=== PATIENT | male | born 1990 | race Caucasian/White ===

== ENCOUNTER 2018-11-30 19:46 | Emergency (ER) | payer BC, OTHER ==
--- NOTE | 2018-11-30 23:02 | EDM.PDOCBH ---
ED HPI GENERAL MEDICAL PROBLEM - General Chief Complaint: Behavioral/Psych Stated Complaint: PANIC ATTACKS [facility] PATIENT Time Seen by Provider: 11/30/18 22:12 Source of Information: Reports: Patient, Family (Parents) History Limitations: Reports: Physical Impairment (flat affect, unable to concentrate) - History of Present Illness INITIAL COMMENTS - FREE TEXT/NARRATIVE: Mr. Reynolds is a pleasant 28-year-old man who states that he is here for a panic attack that began around 16:00 this afternoon, and has persisted. When asked what he means by a panic attack, he states that he is thinking of killing himself or others, using a knife, or running out in traffic. When prompted, he states that he feels anxious, but he does not describe symptoms such as dyspnea , tingling, numbness, chest pain, palpitations, abdominal pain, nausea, or weakness in the legs, or other symptoms typical of a panic attack. He denies recent illness, such as fever, chills, cough, vomiting, constipation, diarrhea, urinary symptoms, recent weight gain or weight loss, recent bloody bowel movements or black bowel movements, joint aches, headaches, or rashes. The patient states that he has never previously attempted to harm himself, or others. The patient's parents tell me that the patient was psychiatrically admitted to the [facility] in [place], [place], followed by BERNARDO Olvera, followed by 4 or 5 admissions to the [facility] [place], near [place], [place], and, most recently, the [facility] [place], [place], being discharged this past 11/26/2018. [facility] [place] [facility]. The patient has been diagnosed with bipolar affective disorder, PTSD , and schizoaffective disorder. He is currently prescribed haloperidol, fluoxetine, diphenhydramine, trazodone, and risperidone. The patient's parents tell me that this is his first "panic attack" since being discharged from the [facility]. The patient's parents state that the [facility] the [facility] [place], [place], however, if that is not possible, then they would like him to go back to [place]. The patient's parents are willing to drive him. The patient's P[facility] is at the [facility]. - Related Data Allergies Allergy/AdvReac Type Severity Reaction Status Date / Time morphine Allergy Rash Verified 11/30/18 20:20 Past Medical History Psychiatric History: Reports: Bipolar, PTSD, Other (See Below) (Schizoaffective disorder) - Past Surgical History HEENT Surgical History: Reports: Oral Surgery (wisdom teeth extraction) GI Surgical History: Reports: Appendectomy, Lysis of Adhesions (open) Musculoskeletal Surgical History: Reports: Arthroscopic Knee (right), Other ( See Below) (Left knee, open, x 2) Social & Family History - Tobacco Use Smoking Status *Q: Never Smoker - Alcohol Use Alcohol Use History: Yes Alcohol Use Frequency: Socially - Recreational Drug Use Recreational Drug Use: No - Living Situation & Occupation Living situation: Reports: Single, with Family (Parents) Occupation: Employed ([employer]) ED ROS GENERAL - Review of Systems Review Of Systems: ROS reveals no pertinent complaints other than HPI. ED EXAM, BEHAVIORAL HEALTH - Physical Exam Exam: See Below Exam Limited By: No Limitations General Appearance: Alert, WD/WN, No Apparent Distress Eye Exam: Bilateral Eye: EOMI, Normal Inspection Ears: Normal External Exam, Hearing Grossly Normal Nose: Normal Inspection Throat/Mouth: Normal Inspection, Normal Lips, Normal Voice, No Airway Compromise Head: Atraumatic, Normocephalic Neck: Normal Inspection, Full Range of Motion Respiratory/Chest: No Respiratory Distress, Lungs Clear, Normal Breath Sounds, No Accessory Muscle Use Cardiovascular: Normal Peripheral Pulses, Regular Rate, Rhythm, No Edema, No Gallop, No JVD, No Murmur, No Rub GI/Abdominal: Normal Bowel Sounds, Soft, Non-Tender, No Organomegaly, No Distention, No Abnormal Bruit, No Mass (Male) Exam: Deferred Rectal (Males) Exam: Deferred Back Exam: Normal Inspection, Full Range of Motion, NT Extremities: Normal Inspection, Normal Range of Motion, No Pedal Edema, Normal Capillary Refill Neurological: Alert, No Motor/Sensory Deficits, Other (Slow, sometimes unable to answer questions) Psychiatric: Flat Affect Skin Exam: Warm, Dry, Intact, Normal color, No rash EKG INTERPRETATION EKG Date: 11/30/18 Time: 22:51 Rhythm: NSR Rate (Beats/Min): 72 [place]: LAD-Left [place] Deviation P-Wave: Present QRS: Normal ST-T: Normal QT: Normal Comparison: NA - No Prior EKG COURSE, BEHAVIORAL HEALTH COMP - Course Vital Signs: Last Vital Signs Temp 36.9 C 11/30/18 20:18 Pulse 100 11/30/18 20:18 Resp 16 11/30/18 20:18 BP 143/95 H 11/30/18 20:18 Pulse Ox 98 11/30/18 20:18 Orders, Labs, Meds: Active Orders 24 hr Category Date Time Status EKG Documentation Completion [RC] STAT Care 11/30/18 22:40 Active Laboratory Tests 11/30/18 11/30/18 11/30/18 Range/Units 21:00 23:00 23:00 WBC 4.76 (4.23-9.07) K/mm3 RBC 4.85 (4.63-6.08) M/mm3 Hgb 15.2 (13.7-17.5) gm/dl Hct 41.2 (40.1-51.0) % MCV 84.9 (79.0-92.2) fl MCH 31.3 (25.7-32.2) pg MCHC 36.9 H (32.2-35.5) g/dl RDW Std Deviation 36.9 (35.1-43.9) fL Plt Count 149 L (163-337) K/mm3 MPV 10.8 (9.4-12.3) fl Neut % (Auto) 71.7 H (34.0-67.9) % Lymph % (Auto) 21.8 (21.8-53.1) % [place] % (Auto) 5.7 (5.3-12.2) % Eos % (Auto) 0.2 L (0.8-7.0) Baso % (Auto) 0.4 (0.1-1.2) % Neut # (Auto) 3.41 (1.78-5.38) K/mm3 Lymph # (Auto) 1.04 L (1.32-3.57) K/mm3 [place] # (Auto) 0.27 L (0.30-0.82) K/mm3 Eos # (Auto) 0.01 L (0.04-0.54) K/mm3 Baso # (Auto) 0.02 (0.01-0.08) K/mm3 Manual Slide Review Normal smear Sodium 140 (136-145) mEq/L Potassium 3.8 (3.5-5.1) mEq/L Chloride 103 (98-107) mEq/L Carbon Dioxide 25 (21-32) mEq/L Anion Gap 15.8 H (5-15) BUN 16 (7-18) mg/dL Creatinine 1.4 H (0.7-1.3) mg/dL Est Cr Clr Drug Dosing 79.26 mL/min Estimated GFR (MDRD) > 60 (>60) mL/min BUN/Creatinine Ratio 11.4 L (14-18) Glucose 95 (74-106) mg/dL Calcium 9.1 (8.5-10.1) mg/dL Total Bilirubin 0.5 (0.2-1.0) mg/dL AST 21 (15-37) U/L ALT 28 (16-63) U/L Alkaline Phosphatase 71 (46-116) U/L Total Protein 7.2 (6.4-8.2) g/dl Albumin 4.2 (3.4-5.0) g/dl Globulin 3.0 gm/dL Albumin/Globulin Ratio 1.4 (1-2) TSH 3rd Generation 3.174 (0.358-3.74) uIU/mL Salicylates 1.6 L (2.8-20) mg/dL Urine Opiates Screen (PESKQL=686) Ur Buprenorphine Scrn (CUTOFF=10) Ur Oxycodone Screen (FYB1RK=108) Urine Methadone Screen (IGA4TM=793) Ur Propoxyphene Screen (YBCMYK=470) Acetaminophen 0 L (10-30) ug/mL Ur Barbiturates Screen (TALULO=698) Ur Tricyclics Screen (XTAQMH=033) Ur Phencyclidine Scrn (CUTOFF=25) Ur Amphetamine Screen (VLCHHQ=009) U Methamphetamines Scrn (YPQMNE=224) U Benzodiazepines Scrn (MUJATC=028) U Cocaine Metab Screen (KSMUXZ=689) U Marijuana (THC) Screen (CUTOFF=50) Ethyl Alcohol 0.00 (0.00) gm% 11/30/18 Range/Units 23:13 WBC (4.23-9.07) K/mm3 RBC (4.63-6.08) M/mm3 Hgb (13.7-17.5) gm/dl Hct (40.1-51.0) % MCV (79.0-92.2) fl MCH (25.7-32.2) pg MCHC (32.2-35.5) g/dl RDW Std Deviation (35.1-43.9) fL Plt Count (163-337) K/mm3 MPV (9.4-12.3) fl Neut % (Auto) (34.0-67.9) % Lymph % (Auto) (21.8-53.1) % [place] % (Auto) (5.3-12.2) % Eos % (Auto) (0.8-7.0) Baso % (Auto) (0.1-1.2) % Neut # (Auto) (1.78-5.38) K/mm3 Lymph # (Auto) (1.32-3.57) K/mm3 [place] # (Auto) (0.30-0.82) K/mm3 Eos # (Auto) (0.04-0.54) K/mm3 Baso # (Auto) (0.01-0.08) K/mm3 Manual Slide Review Sodium (136-145) mEq/L Potassium (3.5-5.1) mEq/L Chloride (98-107) mEq/L Carbon Dioxide (21-32) mEq/L Anion Gap (5-15) BUN (7-18) mg/dL Creatinine (0.7-1.3) mg/dL Est Cr Clr Drug Dosing mL/min Estimated GFR (MDRD) (>60) mL/min BUN/Creatinine Ratio (14-18) Glucose (74-106) mg/dL Calcium (8.5-10.1) mg/dL Total Bilirubin (0.2-1.0) mg/dL AST (15-37) U/L ALT (16-63) U/L Alkaline Phosphatase (46-116) U/L Total Protein (6.4-8.2) g/dl Albumin (3.4-5.0) g/dl Globulin gm/dL Albumin/Globulin Ratio (1-2) TSH 3rd Generation (0.358-3.74) uIU/mL Salicylates (2.8-20) mg/dL Urine Opiates Screen Negative (MCBRWN=946) Ur Buprenorphine Scrn Negative (CUTOFF=10) Ur Oxycodone Screen Negative (NXN6HR=807) Urine Methadone Screen Negative (NFD1WB=970) Ur Propoxyphene Screen Negative (JHGYJZ=346) Acetaminophen (10-30) ug/mL Ur Barbiturates Screen Negative (AFGGVY=062) Ur Tricyclics Screen Negative (TPPSVT=366) Ur Phencyclidine Scrn Negative (CUTOFF=25) Ur Amphetamine Screen Negative (AGCEYD=093) U Methamphetamines Scrn Negative (GZJOUM=866) U Benzodiazepines Scrn Negative (VBCPDQ=697) U Cocaine Metab Screen Negative (JNVSLY=333) U Marijuana (THC) Screen Negative (CUTOFF=50) Ethyl Alcohol (0.00) gm% Medical Clearance: 12/01/18 01:06 The patient's CBC is remarkable for platelets mildly depressed at 149,000, and is otherwise unremarkable. His CMP is remarkable for a creatinine slightly elevated at 1.4, but is otherwise unremarkable. His TSH is within normal limits at 3.174. His acetaminophen level is 0. His salicylate level is within normal limits at 1.6. History EtOH is level 0. His urine drug screen is completely negative. We have contacted the [facility], and it sounds like they have a psychiatric bed available, however, they would like us to fax some information to them before I can talk to a Psychiatrist. They will call us back after they have reviewed the faxed information. 12/01/18 03:15 Notified by Jessica SALCEDO that the [facility] declined to accept the patient, as they feel the patient will require one-on-one care, and they have too many patients who require one-on-one care already. We will contact the [facility] at [place], near [place], [place]. 12/01/18 03:[address] Gallegos, Emergency Physician at the [facility], at 03:22. He did not think he would be a problem in accepting the patient, but needed to talk to the Psychiatrist first. He then contacted her, and called me back at 03:46 to give acceptance for transfer of the patient to their facility. He would like us to fax all of our information to them, in addition to having hard copies go with the patient's parents. Departure - Departure Time of Disposition: 03:51 Disposition: DC/Tfer to Psych Hosp/Unit [facility] Condition: Good Clinical Impression: Suicidal ideation, Homicidal ideation - Discharge Information *PRESCRIPTION DRUG MONITORING PROGRAM REVIEWED*: Not Applicable *COPY OF PRESCRIPTION DRUG MONITORING REPORT IN PATIENT CASH: Not Applicable Referrals: Ann Garcia MD [Primary Care Provider] - Forms: ED Department Discharge - My Orders Last 24 Hours: My Active Orders 11/30/18 22:40 EKG Documentation Completion [RC] STAT - Assessment/Plan Last 24 Hours: My Active Orders 11/30/18 22:40 EKG Documentation Completion [RC] STAT
[2018-11-30 23:44] LABS: ACETAMINOPHEN 0 ug/mL (10-30)
== END 2018-12-01 04:19 ==
LOC: JD.ED 19:46
DX: R45.851 Suicidal ideations (principal); R45.850 Homicidal ideations; Z88.5 Allergy status to narcotic agent
CPT/HCPCS: 36415; 80053; 80306; 84443; 85025; 93005; 99285-25; G0480